=== PATIENT | female | born 1945 | race Caucasian/White ===

== ENCOUNTER 2022-09-04 09:09 | Outpatient (CLI) | payer BC ==
[2022-09-04] MEDS ORDERED: iohexoL 350 mgI/mL, 100 ML INFUS..BTL IV ONE (11:08)
== END 2022-09-04 19:44 | disposition home or self-care (01) ==
LOC: SCT 09:09
PROVIDERS: ATTEND Urology Pediatric Urology
DX: C64.2 Malignant neoplasm of left kidney, except renal pelvis (principal); K57.30 Diverticulosis of large intestine without perforation or abscess without bleeding; K56.41 Fecal impaction; I70.0 Atherosclerosis of aorta; M48.54XA Collapsed vertebra, not elsewhere classified, thoracic region, initial encounter for fracture; M85.88 Other specified disorders of bone density and structure, other site; I89.0 Lymphedema, not elsewhere classified
CPT/HCPCS: 74178; 71045; 76376 ×2; Q9967